=== PATIENT | female | born 1990 | race African-American/Black ===

== ENCOUNTER 2023-06-24 01:05 | Emergency (ER) | payer BC ==
[2023-06-24 01:12] VITALS: BP 123/85; PULSE 90; RESP 18; TEMP 98.9; BMI 34.2
[2023-06-24] MEDS ORDERED: KETOROLAC TROMETHAMINE 30 MG/1 ML VIAL IM ONE (03:44)
[2023-06-24] MEDS ORDERED: KETOROLAC TROMETHAMINE 30 MG/1 ML VIAL ONE (03:50)
[2023-06-24 04:35] LABS: BASO % 0.3 % (0-2.0); EOS % 0.1 % (0-4.5); HEMATOCRIT 29.9 % (32.4-45.2); HEMOGLOBIN 9.1 GM/dL (10.7-15.3); LYMPH % 30.3 % (8-40); MCH 20.5 pg (25.7-33.7); MCHC 30.5 g/dl (32.0-36.0); MEAN CELL VOLUME 67.2 fl (80-96); MEAN PLT VOLUME 7.3 fl (7.5-11.1); MONO % 13.6 % (3.8-10.2); NEUT % 55.7 % (42.8-82.8); PLATELET COUNT 401 10^3/uL (134-434); RBC 4.44 M/mm3 (3.60-5.2); RDW 18.4 % (11.6-15.6); WHITE BLOOD COUNT 3.2 K/mm3 (4.0-10.0)
[2023-06-24 04:51] LABS: POTASSIUM 3.4 mmol/L (3.5-5.1)
[2023-06-24 04:52] LABS: CALCIUM 8.9 mg/dL (8.5-10.1)
[2023-06-24 04:53] LABS: BLOOD UREA NITROGEN 5.8 mg/dL (7-18)
[2023-06-24 04:56] LABS: CREATININE 0.6 mg/dL (0.55-1.3)
[2023-06-24 06:31] LABS: ANISOCYTOSIS 2+; MACROCYTOSIS 0; ROULEAU 1+
== END 2023-06-24 05:28 | disposition home or self-care (01) ==
LOC: JER 01:05
PROC: 3E0233Z Introduction of Anti-inflammatory into Muscle, Percutaneous Approach (ICD-10-PCS; principal; 2023-06-24)
DX: M54.9 Dorsalgia, unspecified (principal); G89.29 Other chronic pain
CPT/HCPCS: 36415; 71046-TC-FY; 80048; 84484; 85025; 93005; 93010; 99285-25